=== PATIENT | female | born 1950 | race Caucasian/White ===

== ENCOUNTER → 2024-05-05 14:28 | Outpatient (REF) | payer OTHER, SELFPAY | LOC: HWRCS 14:28 | PROVIDERS: ATTENDING PHYSICIAN Internal Medicine Cardiovascular Disease; FAMILY PHYSICIAN Family Medicine | DX: I48.91 Unspecified atrial fibrillation (principal) | CPT/HCPCS: 93306 ==

== ENCOUNTER → 2025-08-02 11:28 | Outpatient (REF) | payer OTHER, SELFPAY | LOC: HWRCS 11:28 | PROVIDERS: ATTENDING PHYSICIAN Internal Medicine Cardiovascular Disease; FAMILY PHYSICIAN Family Medicine | DX: I48.91 Unspecified atrial fibrillation (principal) | CPT/HCPCS: 78452; 93017; A9500; J2785 ==